=== PATIENT | male | born 1970 | race Hispanic/Latino ===

== ENCOUNTER 2021-03-23 17:59 | Inpatient (IN) | payer OTHER ==
[~2021-03-23] VITALS: Ht 180.3 cm; Wt 48.4 kg
[~2021-03-23 17:59] MED LIST: CARV6.2579 PO; FURO40TA7 PO; HYDR25 PO; Isosorbide Mononitrate PO; LEVO500T89 PO; SPIR25TA PO
[2021-03-23 18:03] VITALS: BP 121/67
[2021-03-23 23:17] VITALS: BP 145/74
[2021-03-23] MEDS ORDERED: LACTATED RINGERS 1000ML 1,000 ML IV ONE ×2 (23:30→23:49)
[2021-03-23 23:44] LABS: BASOPHILS % (AUTO) 0.5 % (0.0-5.0); EOSINOPHILS % (AUTO) 0.7 % (0.0-8.0); HEMATOCRIT 36.4 % (42-54); LYMPHOCYTES % (AUTO) 18.4 % (21.0-51.0); MEAN CORPUSCULAR HEMOGLOBIN 27.3 pg (27.0-33.0); MEAN CORPUSCULAR HGB CONC 31.9 g/dL (32.0-36.0); MEAN CORPUSCULAR VOLUME 85.6 fL (79-99); MONOCYTES % (AUTO) 9.3 % (3.0-13.0); NEUTROPHILS % (AUTO) 70.4 % (40.0-77.0); PLATELET COUNT (AUTO) 496 K/uL (130-400); RED BLOOD CELL COUNT(AUTO) 4.25 MIL/uL (4.50-6.20); RED CELL DISTRIBUTION WIDTH 13.2 % (11.0-15.5); WHITE BLOOD COUNT (AUTO) 12.2 K/uL (4.8-10.8)
[2021-03-24] VITALS (7 sets, daily range): BP systolic 106–132; BP diastolic 62–75
[2021-03-24 00:09] LABS: ALBUMIN 3.3 g/dL (3.5-5.0); BILIRUBIN,TOTAL 0.2 mg/dL (0.2-1.0); CREATININE 0.7 mg/dL (0.5-1.5); MAGNESIUM 1.7 mg/dL (1.80-2.40); POTASSIUM 4.7 mmol/L (3.5-5.1); THYROID STIMULATING HORMONE 1.48 uIU/mL (0.36-3.74); TOTAL PROTEIN, SERUM 8.2 g/dL (6.0-8.3)
[2021-03-24] MEDS ORDERED: IOHEXOL-350 75 ML VIAL IV ONE (01:14)
[2021-03-24] MEDS ORDERED: PIP/TAZ ZOSYN 3.375G 3.375 GM VIAL IVPB SCH (04:30)
[2021-03-24] MEDS ORDERED: ONDANSETRON 4MG INJ IV PRN (04:30)
[2021-03-24] MEDS ORDERED: NITROGLYCERIN 0.4 MG SL TAB SL PRN (04:30)
[2021-03-24] MEDS ORDERED: 0.9%NACL 50ML IV SCH (04:30)
[2021-03-24] MEDS: ZOSYN 3.375GM+NS 50ML 50 ML IV SCH ×3 (04:58→20:08)
[2021-03-24] MEDS: 0.9%NACL 1000ML 1,000 ML IV SCH ×2 (04:58→16:33)
[2021-03-24] MEDS ORDERED: MAGNESIUM 2GM PREMIX 50ML 50 ML IV PRN (07:30)
[2021-03-24] MEDS: FAMOTIDINE 20MG VIAL IV SCH ×2 (08:48→20:08)
[2021-03-24] MEDS: ENOXAPARIN SODIUM 40 MG/0.4 ML SYRINGE SQ SCH (08:49)
[2021-03-24] MEDS: MORPHINE 2 MG SYG IV PRN (14:51)
[2021-03-24] MEDS: MAGNESIUM 2GM PREMIX 50ML 50 ML IV SCH (18:38)
[2021-03-25 03:34] VITALS: BP 125/73
[2021-03-25] MEDS: 0.9%NACL 1000ML 1,000 ML IV SCH ×2 (05:11→15:57)
[2021-03-25] MEDS: ZOSYN 3.375GM+NS 50ML 50 ML IV SCH ×3 (05:11→22:01)
[2021-03-25 06:27] LABS: HEMATOCRIT 33.2 % (42-54); MEAN CORPUSCULAR HEMOGLOBIN 27.3 pg (27.0-33.0); MEAN CORPUSCULAR HGB CONC 32.5 g/dL (32.0-36.0); MEAN CORPUSCULAR VOLUME 84.1 fL (79-99); RED BLOOD CELL COUNT(AUTO) 3.95 MIL/uL (4.50-6.20); RED CELL DISTRIBUTION WIDTH 13.1 % (11.0-15.5); WHITE BLOOD COUNT (AUTO) 9.8 K/uL (4.8-10.8)
[2021-03-25 06:44] LABS: CREATININE 0.8 mg/dL (0.5-1.5); POTASSIUM 4.4 mmol/L (3.5-5.1)
[2021-03-25 07:30] VITALS: BP 130/73
[2021-03-25] MEDS: ENOXAPARIN SODIUM 40 MG/0.4 ML SYRINGE SQ SCH (09:00)
[2021-03-25] MEDS: FAMOTIDINE 20MG VIAL IV SCH ×2 (10:00→22:01)
[2021-03-25] MEDS: MORPHINE 2 MG SYG IV PRN ×3 (10:01→22:01)
[2021-03-25 11:00] VITALS: BP 119/73
[2021-03-25 16:00] VITALS: BP 134/70
[2021-03-25 20:00] VITALS: BP 116/63
[2021-03-26] VITALS: BP 149/81
[2021-03-26 04:00] VITALS: BP 131/79
[2021-03-26] MEDS: ZOSYN 3.375GM+NS 50ML 50 ML IV SCH ×3 (04:41→19:54)
[2021-03-26] MEDS: 0.9%NACL 1000ML 1,000 ML IV SCH (04:42)
[2021-03-26 06:21] LABS: INR 1.08 (0.85-1.15); PROTHROMBIN TIME 11.7 SEC (9.6-11.6)
[2021-03-26 06:23] LABS: PARTIAL THROMBOPLASTIN TIME 23.1 SEC (26.3-35.5)
[2021-03-26 07:30] VITALS: BP 125/64
[2021-03-26] MEDS: ENOXAPARIN SODIUM 40 MG/0.4 ML SYRINGE SQ SCH (08:00)
[2021-03-26] MEDS: MORPHINE 2 MG SYG IV PRN ×3 (08:06→19:54)
[2021-03-26] MEDS: FAMOTIDINE 20MG VIAL IV SCH ×2 (08:06→19:54)
[2021-03-26 11:00] VITALS: BP 120/72
[2021-03-26 16:00] VITALS: BP 114/61
[2021-03-26 20:00] VITALS: BP 123/61
[2021-03-27] VITALS (7 sets, daily range): BP systolic 111–138; BP diastolic 61–82
[2021-03-27] MEDS: MORPHINE 2 MG SYG IV PRN ×5 (02:44→23:01)
[2021-03-27] MEDS: 0.9%NACL 1000ML 1,000 ML IV SCH ×2 (02:46→18:25)
[2021-03-27] MEDS: ZOSYN 3.375GM+NS 50ML 50 ML IV SCH ×3 (05:15→21:15)
[2021-03-27] MEDS: FAMOTIDINE 20MG VIAL IV SCH ×2 (08:53→21:15)
[2021-03-27] MEDS: ENOXAPARIN SODIUM 40 MG/0.4 ML SYRINGE SQ SCH (08:53)
[2021-03-27 09:56] LABS: BASOPHILS % (AUTO) 1.1 % (0.0-5.0); EOSINOPHILS % (AUTO) 4.4 % (0.0-8.0); HEMATOCRIT 30.1 % (42-54); LYMPHOCYTES % (AUTO) 17.4 % (21.0-51.0); MEAN CORPUSCULAR HEMOGLOBIN 27.9 pg (27.0-33.0); MEAN CORPUSCULAR HGB CONC 33.2 g/dL (32.0-36.0); MEAN CORPUSCULAR VOLUME 83.8 fL (79-99); NEUTROPHILS % (AUTO) 62.6 % (40.0-77.0); PLATELET COUNT (AUTO) 467 K/uL (130-400); RED BLOOD CELL COUNT(AUTO) 3.59 MIL/uL (4.50-6.20); RED CELL DISTRIBUTION WIDTH 13.1 % (11.0-15.5); WHITE BLOOD COUNT (AUTO) 8.4 K/uL (4.8-10.8)
[2021-03-27 10:15] LABS: ALBUMIN 2.5 g/dL (3.5-5.0); BILIRUBIN,TOTAL 0.3 mg/dL (0.2-1.0); CREATININE 0.7 mg/dL (0.5-1.5); MAGNESIUM 1.5 mg/dL (1.80-2.40); POTASSIUM 3.8 mmol/L (3.5-5.1); TOTAL PROTEIN, SERUM 6.7 g/dL (6.0-8.3)
[2021-03-28 03:52] VITALS: BP 137/63
[2021-03-28] MEDS: ZOSYN 3.375GM+NS 50ML 50 ML IV SCH ×3 (04:17→19:40)
[2021-03-28] MEDS: MORPHINE 2 MG SYG IV PRN ×3 (04:18→19:41)
[2021-03-28 06:10] LABS: CREATININE 0.8 mg/dL (0.5-1.5); POTASSIUM 4.1 mmol/L (3.5-5.1)
[2021-03-28] MEDS: 0.9%NACL 1000ML 1,000 ML IV SCH ×2 (08:00→17:34)
[2021-03-28 08:10] VITALS: BP 131/70
[2021-03-28] MEDS: ENOXAPARIN SODIUM 40 MG/0.4 ML SYRINGE SQ SCH (08:23)
[2021-03-28] MEDS: FAMOTIDINE 20MG VIAL IV SCH ×2 (08:23→19:40)
[2021-03-28 11:28] VITALS: BP 112/69
[2021-03-28 16:00] VITALS: BP 116/65
[2021-03-29 00:15] VITALS: BP 107/53
[2021-03-29] MEDS: MORPHINE 2 MG SYG IV PRN ×2 (00:16→05:15)
[2021-03-29 03:48] VITALS: BP 147/69
[2021-03-29] MEDS: ZOSYN 3.375GM+NS 50ML 50 ML IV SCH ×3 (05:07→20:54)
[2021-03-29] MEDS: 0.9%NACL 1000ML 1,000 ML IV SCH ×2 (08:00→17:10)
[2021-03-29 08:23] VITALS: BP 118/72
[2021-03-29] MEDS: FAMOTIDINE 20MG VIAL IV SCH ×2 (08:30→20:56)
[2021-03-29] MEDS: ENOXAPARIN SODIUM 40 MG/0.4 ML SYRINGE SQ SCH (08:31)
[2021-03-29] MEDS: MAGNESIUM 2GM PREMIX 50ML 50 ML IV SCH (10:27)
[2021-03-29] MEDS: MORPHINE 2 MG SYG IVP PRN ×3 (10:28→22:52)
[2021-03-29 12:19] VITALS: BP 129/70
[2021-03-29 16:55] VITALS: BP 137/86
[2021-03-29 20:00] VITALS: BP 114/69
[2021-03-30] VITALS (27 sets, daily range): BP systolic 111–149; BP diastolic 63–92
[2021-03-30] MEDS: ZOSYN 3.375GM+NS 50ML 50 ML IV SCH ×3 (03:27→19:56)
[2021-03-30] MEDS: MORPHINE 2 MG SYG IVP PRN ×4 (03:58→19:55)
[2021-03-30] MEDS: FAMOTIDINE 20MG VIAL IV SCH ×2 (08:47→19:55)
[2021-03-30] MEDS: ENOXAPARIN SODIUM 40 MG/0.4 ML SYRINGE SQ SCH (09:00)
[2021-03-30] MEDS ORDERED: LACTATED RINGERS 1000ML 1,000 ML IV ONE (12:12)
[2021-03-30] MEDS ORDERED: MIDAZOLAM HCL 1 MG/ML 2ML VIAL ONE (13:09)
[2021-03-30] MEDS ORDERED: DEXAMETHASONE SOD PHOSPHATE 10MG/ML 1ML VIAL ONE (13:09)
[2021-03-30] MEDS ORDERED: ONDANSETRON 4MG INJ ONE (13:09)
[2021-03-30] MEDS ORDERED: LIDOCAINE PF 100MG/5ML (2%) SYRINGE 5ML ONE (13:09)
[2021-03-30] MEDS ORDERED: NEOSTIGMINE 5MG/5ML SYR IV ONE (13:09)
[2021-03-30] MEDS ORDERED: PROPOFOL 10 MG/ML 20ML VIAL IV ONE (13:09)
[2021-03-30] MEDS ORDERED: GLYCOPYRROLATE 1 MG/5 ML SYRINGE ONE (13:09)
[2021-03-30] MEDS ORDERED: SUCCINYLCHOLINE 200MG/10ML SYR ONE (13:09)
[2021-03-30] MEDS ORDERED: ROCURONIUM 10MG/1ML SYR 10 MG/ML ML ONE (13:10)
[2021-03-30] MEDS ORDERED: FENTANYL CITRATE PF 50 MCG/1 ML 2ML VIAL ONE (13:10)
[2021-03-30] MEDS ORDERED: BUPIVACAINE/PF 0.5% 30ML VIAL ONE (13:46)
[2021-03-30] MEDS ORDERED: KETOROLAC 15MG/ML VIAL (15MG/ML) IV PRN (19:30)
[2021-03-31] VITALS: BP 126/76
[2021-03-31 04:00] VITALS: BP 139/73
[2021-03-31] MEDS: ZOSYN 3.375GM+NS 50ML 50 ML IV SCH ×3 (04:32→21:28)
[2021-03-31 05:53] LABS: BASOPHILS % (AUTO) 0.6 % (0.0-5.0); EOSINOPHILS % (AUTO) 0.3 % (0.0-8.0); HEMATOCRIT 33.4 % (42-54); MEAN CORPUSCULAR HEMOGLOBIN 27.7 pg (27.0-33.0); MEAN CORPUSCULAR HGB CONC 32.9 g/dL (32.0-36.0); MEAN CORPUSCULAR VOLUME 84.1 fL (79-99); MONOCYTES % (AUTO) 10.8 % (3.0-13.0); NEUTROPHILS % (AUTO) 68.1 % (40.0-77.0); PLATELET COUNT (AUTO) 486 K/uL (130-400); RED BLOOD CELL COUNT(AUTO) 3.97 MIL/uL (4.50-6.20); RED CELL DISTRIBUTION WIDTH 13.2 % (11.0-15.5); WHITE BLOOD COUNT (AUTO) 11.6 K/uL (4.8-10.8)
[2021-03-31 06:22] LABS: ALBUMIN 2.6 g/dL (3.5-5.0); BILIRUBIN,TOTAL 0.3 mg/dL (0.2-1.0); CREATININE 0.9 mg/dL (0.5-1.5); MAGNESIUM 1.4 mg/dL (1.80-2.40); POTASSIUM 4.3 mmol/L (3.5-5.1); TOTAL PROTEIN, SERUM 6.9 g/dL (6.0-8.3)
[2021-03-31 08:00] VITALS: BP 145/86
[2021-03-31] MEDS: FAMOTIDINE 20MG VIAL IV SCH ×2 (08:38→21:28)
[2021-03-31] MEDS: ENOXAPARIN SODIUM 40 MG/0.4 ML SYRINGE SQ SCH (08:39)
[2021-03-31] MEDS ORDERED: LACTULOSE 20 GM/30 ML UDCUP ONE (10:56)
[2021-03-31] MEDS: LACTULOSE 20 GM/30 ML UDCUP PO SCH ×2 (11:00→11:23)
[2021-03-31 13:54] VITALS: BP 140/83
[2021-03-31 16:00] VITALS: BP 132/84
[2021-03-31] MEDS: 0.9%NACL 1000ML 1,000 ML IV SCH (17:23)
[2021-03-31 20:00] VITALS: BP 146/86
[2021-04-01] VITALS: BP 117/71
[2021-04-01 04:00] VITALS: BP 129/84
[2021-04-01] MEDS: ZOSYN 3.375GM+NS 50ML 50 ML IV SCH ×2 (05:17→12:48)
[2021-04-01] MEDS: 0.9%NACL 1000ML 1,000 ML IV SCH (08:00)
[2021-04-01 08:04] VITALS: BP 137/85
[2021-04-01] MEDS: FAMOTIDINE 20MG VIAL IV SCH (09:03)
[2021-04-01] MEDS: ENOXAPARIN SODIUM 40 MG/0.4 ML SYRINGE SQ SCH (09:04)
[2021-04-01 10:46] VITALS: BP 136/79
[2021-04-01] MEDS ORDERED: LACTULOSE 20 GM/30 ML UDCUP PO ONE (11:30)
[2021-04-01 16:29] VITALS: BP 134/85
== END 2021-04-01 19:03 | disposition home or self-care (01) | DRG 326 ==
LOC: EDH 17:59 → EDHIP 03-24 04:16 → 3AH 03-24 09:24
PROVIDERS: ADMIT Hospitalist; ATTEND Hospitalist
PROC: 0HB4XZX Excision of Neck Skin, External Approach, Diagnostic (ICD-10-PCS; principal; 2021-03-26)
PROC: 0DH60UZ Insertion of Feeding Device into Stomach, Open Approach (ICD-10-PCS; 2021-03-30)
DX: R13.12 Dysphagia, oropharyngeal phase (principal); E43 Unspecified severe protein-calorie malnutrition; L03.221 Cellulitis of neck; R64 Cachexia; E87.1 Hypo-osmolality and hyponatremia; I50.22 Chronic systolic (congestive) heart failure; R22.1 Localized swelling, mass and lump, neck; E86.0 Dehydration; J44.9 Chronic obstructive pulmonary disease, unspecified; I10 Essential (primary) hypertension; E83.52 Hypercalcemia; D64.9 Anemia, unspecified; F17.200 Nicotine dependence, unspecified, uncomplicated; I11.0 Hypertensive heart disease with heart failure; R62.7 Adult failure to thrive; Z80.51 Family history of malignant neoplasm of kidney; Z82.49 Family history of ischemic heart disease and other diseases of the circulatory system; Z83.3 Family history of diabetes mellitus; Z20.822 Contact with and (suspected) exposure to COVID-19
CPT/HCPCS: 36415; 38505; 70491; 71045; 74018; 74230; 76942; 80048; 80053; 83735; 84145; 84439; 84443; 84481; 85025; 85027; 85610; 85730; 87040; 87070; 87076; 87077; 87186; 87635; 92526; 92610; 92611; 93005; C9803; G0378; J0330; J1100; J1650; J1885; J2001; J2250; J2405; J2543; J2704; J2710; J3010; J3475; J3490; J7030; J7120; Q9967

== ENCOUNTER 2021-06-14 19:17 | Inpatient (IN) | payer OTHER ==
[~2021-06-14] VITALS: Ht 180.3 cm; Wt 54.6 kg
[2021-06-14 19:50] LABS: BASOPHILS % (AUTO) 0.3 % (0.0-5.0); EOSINOPHILS % (AUTO) 0.4 % (0.0-8.0); HEMATOCRIT 35.5 % (42-54); LYMPHOCYTES % (AUTO) 16.6 % (21.0-51.0); MEAN CORPUSCULAR HEMOGLOBIN 28.5 pg (27.0-33.0); MEAN CORPUSCULAR HGB CONC 32.4 g/dL (32.0-36.0); MEAN CORPUSCULAR VOLUME 88.1 fL (79-99); MONOCYTES % (AUTO) 11.4 % (3.0-13.0); NEUTROPHILS % (AUTO) 66.1 % (40.0-77.0); PLATELET COUNT (AUTO) 647 K/uL (130-400); RED BLOOD CELL COUNT(AUTO) 4.03 MIL/uL (4.50-6.20); RED CELL DISTRIBUTION WIDTH 16.6 % (11.0-15.5); WHITE BLOOD COUNT (AUTO) 20.4 K/uL (4.8-10.8)
[2021-06-14] MEDS ORDERED: LACTATED RINGERS 1000ML 1,000 ML IV ONE (20:00)
[2021-06-14] MEDS ORDERED: CLINDAMYCIN IVPB 600MG/50ML 50 ML IV SCH (20:00)
[2021-06-14 20:02] LABS: CREATININE 0.5 mg/dL (0.5-1.5); POTASSIUM 4.1 mmol/L (3.5-5.1)
[2021-06-14] MEDS ORDERED: CEFEPIME HCL 2 GM VIAL IVP STA (20:03)
[2021-06-14 20:15] LABS: ALBUMIN 3.1 g/dL (3.5-5.0); BILIRUBIN,TOTAL 0.4 mg/dL (0.2-1.0); TOTAL PROTEIN, SERUM 7.2 g/dL (6.0-8.3)
[2021-06-14] MEDS ORDERED: IOHEXOL 350 MG/ML 100ML INFUS..BTL IV ONE (20:15)
[2021-06-14 20:16] LABS: CRP QUANTITATIVE 99.2 mg/L (0.00-9.0); MAGNESIUM 1.8 mg/dL (1.80-2.40)
[2021-06-14 20:38] LABS: APPEARANCE,URINE Clear (CLEAR); BILIRUBIN,URINE Negative (NEGATIVE); COLOR,URINE Yellow (YELLOW); GLUCOSE, URINE (UA) Negative (NEGATIVE); KETONES,URINE Negative (NEGATIVE); LEUKOCYTE ESTERASE ,URINE Trace (NEGATIVE); NITRATE,URINE Negative (NEGATIVE); OCCULT BLOOD,URINE Negative (NEGATIVE); PH,URINE 8.5 (5.0-8.0); PROTEIN,URINE Negative (NEGATIVE)
[2021-06-14 21:07] LABS: BACTERIA,URINE Rare /HPF (None Seen); RBC,URINE 0-1 /HPF (0-1); SQUAMOUS EPITHELIAL CELL,UR 0-2 /HPF (0-2); WBC,URINE 0-1 /HPF (0-1)
[2021-06-14] MEDS ORDERED: ONDANSETRON 4MG INJ IVP ONE (23:00)
[2021-06-14] MEDS ORDERED: MORPHINE 5 MG/ML VIAL (5MG OR GREATER DOSE) IV ONE (23:00)
[2021-06-14] MEDS ORDERED: ACETAMINOPHEN 650 MG/20.3 ML UDCUP PEG PRN (23:30)
[2021-06-14] MEDS ORDERED: ONDANSETRON 4MG INJ IV PRN (23:30)
[2021-06-14] MEDS ORDERED: NITROGLYCERIN 0.4 MG SL TAB SL PRN (23:30)
[2021-06-14] MEDS ORDERED: IPRATROPIUM/ALBUTEROL SULFATE 3 ML SOLUTION IH PRN (23:30)
[2021-06-15] MEDS: 0.9%NACL 1000ML 1,000 ML IV SCH ×2 (00:17→12:17)
[2021-06-15 02:33] LABS: INR 0.99 (0.85-1.15); PROTHROMBIN TIME 10.8 SEC (9.6-11.6)
[2021-06-15 02:34] LABS: PARTIAL THROMBOPLASTIN TIME 23.3 SEC (26.3-35.5)
[2021-06-15 02:49] VITALS: BP 102/61
[2021-06-15] MEDS ORDERED: ACET-66 PO (03:37)
[2021-06-15] MEDS ORDERED: DEXA4 PO (03:37)
[2021-06-15] MEDS ORDERED: SENN8.6T32 PO (03:37)
[2021-06-15] MEDS ORDERED: IPRA3AMP24 IH (03:37)
[2021-06-15] MEDS ORDERED: PANCRELIPASE GT (03:37)
[2021-06-15] MEDS ORDERED: APIX5TAB PO (03:37)
[2021-06-15] MEDS: MORPHINE 2 MG SYG IV PRN ×3 (04:06→22:49)
[2021-06-15 04:17] LABS: BASOPHILS % (AUTO) 0.3 % (0.0-5.0); EOSINOPHILS % (AUTO) 0.3 % (0.0-8.0); HEMATOCRIT 32.5 % (42-54); MEAN CORPUSCULAR HGB CONC 33.2 g/dL (32.0-36.0); MEAN CORPUSCULAR VOLUME 87.1 fL (79-99); NEUTROPHILS % (AUTO) 72.4 % (40.0-77.0); PLATELET COUNT (AUTO) 517 K/uL (130-400); RED BLOOD CELL COUNT(AUTO) 3.73 MIL/uL (4.50-6.20); RED CELL DISTRIBUTION WIDTH 16.3 % (11.0-15.5); WHITE BLOOD COUNT (AUTO) 24.5 K/uL (4.8-10.8)
[2021-06-15 04:41] LABS: ALBUMIN 2.7 g/dL (3.5-5.0); BILIRUBIN,TOTAL 0.7 mg/dL (0.2-1.0); CREATININE 0.5 mg/dL (0.5-1.5); MAGNESIUM 1.8 mg/dL (1.80-2.40); POTASSIUM 4.2 mmol/L (3.5-5.1); TOTAL PROTEIN, SERUM 6.1 g/dL (6.0-8.3)
[2021-06-15] MEDS: CLINDAMYCIN IVPB 600MG/50ML 50 ML IV SCH ×2 (05:25→12:17)
[2021-06-15] MEDS: CEFEPIME HCL 1 GM VIAL IVP SCH ×2 (05:25→12:17)
[2021-06-15 07:35] VITALS: BP 102/59
[2021-06-15] MEDS: FAMOTIDINE 20MG VIAL IV SCH ×2 (08:56→20:19)
[2021-06-15] MEDS ORDERED: ENOXAPARIN SODIUM 30 MG/0.3 ML SQ SCH (09:00)
[2021-06-15 11:25] VITALS: BP 114/51
[2021-06-15] MEDS ORDERED: VANCOMYCIN PROTOCOL PER PHARMACY IV SCH (14:00)
[2021-06-15] MEDS ORDERED: COMPOUND IV REFRIGERATED 1 EACH IVSOLN MISC PRN (14:30)
[2021-06-15] MEDS: FLUCONAZOLE 200 MG/NS 100 ML 100 ML IV SCH (14:41)
[2021-06-15] MEDS: ZOSYN 3.375GM +NS 50ML IV SCH ×2 (14:41→22:45)
[2021-06-15] MEDS: 0.9%NACL 50ML 50 ML IV SCH ×2 (14:41→22:45)
[2021-06-15 15:40] VITALS: BP 95/56
[2021-06-15] MEDS ORDERED: SENNOSIDES 8.6 MG TABLET PO PRN (17:00)
[2021-06-15] MEDS ORDERED: VANCOMYCIN 1.25GM/NS 250ML IVPB ONE ×2 (18:00)
[2021-06-15] MEDS: DEXAMETHASONE 4 MG TAB PO SCH (20:19)
[2021-06-15] MEDS: APIXABAN 5 MG TABLET PO SCH (20:19)
[2021-06-15 20:27] VITALS: BP 108/55
[2021-06-15 23:44] VITALS: BP 99/49
[2021-06-16 03:36] VITALS: BP 102/52
[2021-06-16] MEDS: VANCOMYCIN 750MG VIAL IVPB SCH ×2 (04:54→18:30)
[2021-06-16] MEDS: MORPHINE 2 MG SYG IV PRN ×2 (04:54→20:41)
[2021-06-16] MEDS: ZOSYN 3.375GM +NS 50ML IV SCH ×3 (04:55→20:41)
[2021-06-16] MEDS: 0.9%NACL 50ML 50 ML IV SCH ×3 (06:00→20:41)
[2021-06-16] MEDS: 0.9% NACL 250ML 250 ML IV SCH ×2 (06:00→18:30)
[2021-06-16 07:00] VITALS: BP 96/49
[2021-06-16] MEDS: DEXAMETHASONE 4 MG TAB PO SCH ×2 (10:06→20:40)
[2021-06-16] MEDS: APIXABAN 5 MG TABLET PO SCH ×2 (10:07→20:40)
[2021-06-16] MEDS: FAMOTIDINE 20MG VIAL IV SCH ×2 (10:07→20:40)
[2021-06-16 11:00] VITALS: BP 97/52
[2021-06-16] MEDS: FLUCONAZOLE 200 MG/NS 100 ML 100 ML IV SCH (15:49)
[2021-06-16] MEDS: 0.9%NACL 1000ML 1,000 ML IV SCH (15:59)
[2021-06-16 16:00] VITALS: BP 97/55
[2021-06-16 20:00] VITALS: BP 93/52
[2021-06-17] VITALS: BP 97/54
[2021-06-17] MEDS: MORPHINE 2 MG SYG IV PRN ×3 (01:44→20:37)
[2021-06-17 04:00] VITALS: BP 108/60
[2021-06-17] MEDS: ZOSYN 3.375GM +NS 50ML IV SCH ×3 (05:40→22:40)
[2021-06-17] MEDS: 0.9%NACL 50ML 50 ML IV SCH ×3 (05:40→22:40)
[2021-06-17] MEDS: 0.9% NACL 250ML 250 ML IV SCH ×2 (05:41→18:00)
[2021-06-17] MEDS: VANCOMYCIN 750MG VIAL IVPB SCH (05:41)
[2021-06-17 08:00] VITALS: BP 102/56
[2021-06-17] MEDS: DEXAMETHASONE 4 MG TAB PO SCH ×2 (10:00→22:39)
[2021-06-17] MEDS: FAMOTIDINE 20MG VIAL IV SCH ×2 (10:00→22:39)
[2021-06-17] MEDS: APIXABAN 5 MG TABLET PO SCH ×2 (10:00→22:40)
[2021-06-17] MEDS: 0.9%NACL 1000ML 1,000 ML IV SCH (11:53)
[2021-06-17 12:00] VITALS: BP 98/58
[2021-06-17] MEDS: FLUCONAZOLE 200 MG/NS 100 ML 100 ML IV SCH (15:05)
[2021-06-17 16:00] VITALS: BP 102/56
[2021-06-17] MEDS: VANCOMYCIN 1G/250ML KIT 250 ML IV SCH (18:00)
[2021-06-17 18:17] LABS: BASOPHILS % (AUTO) 0.1 % (0.0-5.0); HEMATOCRIT 28.2 % (42-54); LYMPHOCYTES % (AUTO) 7.7 % (21.0-51.0); MEAN CORPUSCULAR HEMOGLOBIN 28.7 pg (27.0-33.0); MEAN CORPUSCULAR HGB CONC 32.3 g/dL (32.0-36.0); MONOCYTES % (AUTO) 4.6 % (3.0-13.0); PLATELET COUNT (AUTO) 415 K/uL (130-400); RED BLOOD CELL COUNT(AUTO) 3.17 MIL/uL (4.50-6.20); RED CELL DISTRIBUTION WIDTH 15.9 % (11.0-15.5); WHITE BLOOD COUNT (AUTO) 10.7 K/uL (4.8-10.8)
[2021-06-17 18:21] LABS: RETICULOCYTE % (AUTO) 1.8 % (0.42-2.23)
[2021-06-17 18:29] LABS: CREATININE 0.5 mg/dL (0.5-1.5)
[2021-06-17] MEDS: IPRATROPIUM/ALBUTEROL SULFATE 3 ML SOLUTION IH SCH (18:29)
[2021-06-17] MEDS: BUDESONIDE 0.5 MG/2 ML INH IH SCH (18:29)
[2021-06-17 18:33] LABS: ALBUMIN 2.3 g/dL (3.5-5.0); BILIRUBIN,TOTAL 0.2 mg/dL (0.2-1.0); MAGNESIUM 2.2 mg/dL (1.80-2.40); PHOSPHORUS 1.6 mg/dL (2.5-4.9); TOTAL PROTEIN, SERUM 6.1 g/dL (6.0-8.3)
[2021-06-17 18:47] LABS: % IRON SATURATION 27.4 % (30-44)
[2021-06-17 20:00] VITALS: BP 167/69
[2021-06-17] MEDS: ACETAMINOPHEN 650 MG/20.3 ML UDCUP PEG PRN (22:40)
[2021-06-18] VITALS: BP 98/52
[2021-06-18] MEDS: IPRATROPIUM/ALBUTEROL SULFATE 3 ML SOLUTION IH SCH ×5 (00:44→23:17)
[2021-06-18] MEDS: MORPHINE 2 MG SYG IV PRN ×4 (02:45→20:59)
[2021-06-18 04:00] VITALS: BP 101/54
[2021-06-18 04:50] LABS: HEMATOCRIT 28.7 % (42-54); MEAN CORPUSCULAR HEMOGLOBIN 28.9 pg (27.0-33.0); MEAN CORPUSCULAR HGB CONC 32.1 g/dL (32.0-36.0); MEAN CORPUSCULAR VOLUME 90.3 fL (79-99); RED BLOOD CELL COUNT(AUTO) 3.18 MIL/uL (4.50-6.20); WHITE BLOOD COUNT (AUTO) 10.1 K/uL (4.8-10.8)
[2021-06-18 05:08] LABS: CREATININE 0.5 mg/dL (0.5-1.5); MAGNESIUM 2.4 mg/dL (1.80-2.40); POTASSIUM 4.7 mmol/L (3.5-5.1)
[2021-06-18] MEDS: 0.9%NACL 50ML 50 ML IV SCH ×3 (06:21→21:55)
[2021-06-18] MEDS: 0.9%NACL 1000ML 1,000 ML IV SCH (06:22)
[2021-06-18] MEDS: ZOSYN 3.375GM +NS 50ML IV SCH (06:22)
[2021-06-18] MEDS: BUDESONIDE 0.5 MG/2 ML INH IH SCH ×2 (07:00→18:38)
[2021-06-18] MEDS ORDERED: IRON SUCROSE COMPLEX 500 MG in 0.9%NACL 50ML 50 ML IV SCH (10:00)
[2021-06-18] MEDS: FAMOTIDINE 20MG VIAL IV SCH ×2 (10:23→20:59)
[2021-06-18] MEDS: PREDNISONE 20 MG TABLET PO SCH (10:23)
[2021-06-18] MEDS: APIXABAN 5 MG TABLET PO SCH ×2 (10:23→20:59)
[2021-06-18] MEDS: VANCOMYCIN 1G/250ML KIT 250 ML IV SCH (11:04)
[2021-06-18] MEDS: 0.9% NACL 250ML 250 ML IV SCH ×2 (11:04→18:00)
[2021-06-18 11:35] VITALS: BP 118/69
[2021-06-18] MEDS: FLUCONAZOLE 200 MG/NS 100 ML 100 ML IV SCH (13:56)
[2021-06-18] MEDS: CEFUROXIME AXETIL 250 MG TABLET PO SCH (14:41)
[2021-06-18 16:01] VITALS: BP 137/81
[2021-06-18 20:00] VITALS: BP 123/69
[2021-06-19] VITALS: BP 110/60
[2021-06-19] MEDS: CEFUROXIME AXETIL 250 MG TABLET PO SCH (01:05)
[2021-06-19] MEDS: MORPHINE 2 MG SYG IV PRN ×3 (01:05→08:39)
[2021-06-19] MEDS: 0.9%NACL 1000ML 1,000 ML IV SCH (02:08)
[2021-06-19] MEDS: 0.9% NACL 250ML 250 ML IV SCH ×2 (03:45→18:00)
[2021-06-19] MEDS: 0.9%NACL 50ML 50 ML IV SCH ×2 (03:46→14:00)
[2021-06-19 04:00] VITALS: BP 131/68
[2021-06-19] MEDS: ACETAMINOPHEN 650 MG/20.3 ML UDCUP PEG PRN (04:01)
[2021-06-19] MEDS: BUDESONIDE 0.5 MG/2 ML INH IH SCH (07:02)
[2021-06-19] MEDS: IPRATROPIUM/ALBUTEROL SULFATE 3 ML SOLUTION IH SCH ×2 (07:02→11:28)
[2021-06-19 07:56] VITALS: BP 106/56
[2021-06-19] MEDS: APIXABAN 5 MG TABLET PO SCH (08:38)
[2021-06-19] MEDS: FAMOTIDINE 20MG VIAL IV SCH (08:38)
[2021-06-19] MEDS: PREDNISONE 20 MG TABLET PO SCH (08:39)
[2021-06-19] MEDS ORDERED: SULF1TAB42 PO (09:27)
[2021-06-19] MEDS ORDERED: PRED20B PO (09:27)
[2021-06-19] MEDS ORDERED: SULFAMETHOX-TMP DS 800/160 TAB PO SCH ×3 (09:30→21:00)
[2021-06-19 11:44] VITALS: BP 103/63
== END 2021-06-19 18:49 | disposition home or self-care (01) | DRG 871 ==
LOC: EDH 19:17 → EEVIPCON 19:18 → EDHIP 19:18 → 4CH 06-15 02:48
PROVIDERS: ADMIT Internal Medicine; ATTEND Internal Medicine
DX: A41.01 Sepsis due to Methicillin susceptible Staphylococcus aureus (principal); J15.211 Pneumonia due to Methicillin susceptible Staphylococcus aureus; D84.9 Immunodeficiency, unspecified; E87.1 Hypo-osmolality and hyponatremia; I50.22 Chronic systolic (congestive) heart failure; J44.0 Chronic obstructive pulmonary disease with (acute) lower respiratory infection; R64 Cachexia; Z68.1 Body mass index [BMI] 19.9 or less, adult; J44.1 Chronic obstructive pulmonary disease with (acute) exacerbation; J98.11 Atelectasis; J96.10 Chronic respiratory failure, unspecified whether with hypoxia or hypercapnia; L03.311 Cellulitis of abdominal wall; E44.0 Moderate protein-calorie malnutrition; I11.0 Hypertensive heart disease with heart failure; D50.9 Iron deficiency anemia, unspecified; D75.839 Thrombocytosis, unspecified; J98.4 Other disorders of lung; C02.9 Malignant neoplasm of tongue, unspecified; K80.50 Calculus of bile duct without cholangitis or cholecystitis without obstruction; R13.12 Dysphagia, oropharyngeal phase; R62.7 Adult failure to thrive; Z20.822 Contact with and (suspected) exposure to COVID-19; R53.81 Other malaise; Z93.1 Gastrostomy status; Z93.0 Tracheostomy status; Z87.891 Personal history of nicotine dependence; Z85.89 Personal history of malignant neoplasm of other organs and systems; Z85.819 Personal history of malignant neoplasm of unspecified site of lip, oral cavity, and pharynx; Z83.3 Family history of diabetes mellitus; Z80.51 Family history of malignant neoplasm of kidney; Z82.49 Family history of ischemic heart disease and other diseases of the circulatory system
CPT/HCPCS: 36415; 70491; 71045; 71046; 74176; 80048; 80053; 80202; 81001; 82550; 82607; 82728; 82746; 83540; 83550; 83605; 83735; 84100; 84145; 84484; 85025; 85027; 85045; 85610; 85651; 85730; 86140; 87040; 87070; 87071; 87076; 87077; 87088; 87186; 87205; 87635; 87641; 92610; 93005; 94640; 94664; G0378; J0692; J1450; J1650; J1756; J2270; J2405; J2543; J3370; J3490; J7030; J7050; J8540; Q9967

== ENCOUNTER 2021-07-31 09:30 | Inpatient (IN) | payer MEDICAID ==
[~2021-07-31] VITALS: Ht 180.3 cm; Wt 63.0 kg
[~2021-07-31 09:30] MED LIST changes: +ACET-66 PO; +APIX5TAB PO; -CARV6.2579 PO; +DEXA4 PO; -FURO40TA7 PO; -HYDR25 PO; +IPRA3AMP24 IH; -Isosorbide Mononitrate PO; -LEVO500T89 PO; +PANCRELIPASE GT; +PRED20B PO; +SENN8.6T32 PO; -SPIR25TA PO; +SULF1TAB42 PO
[2021-07-31] MEDS ORDERED: IPRATROPIUM/ALBUTEROL SULFATE 3 ML SOLUTION IH ONE ×2 (10:00→15:00)
[2021-07-31] MEDS ORDERED: 0.9%NACL 1000ML 1,000 ML IV ONE (10:00)
[2021-07-31 10:24] LABS: BASOPHILS % (AUTO) 0.5 % (0.0-5.0); EOSINOPHILS % (AUTO) 0.3 % (0.0-8.0); HEMATOCRIT 29.1 % (42-54); LYMPHOCYTES % (AUTO) 15.6 % (21.0-51.0); MEAN CORPUSCULAR HEMOGLOBIN 28.7 pg (27.0-33.0); MEAN CORPUSCULAR VOLUME 89.8 fL (79-99); MONOCYTES % (AUTO) 12.6 % (3.0-13.0); NEUTROPHILS % (AUTO) 70.5 % (40.0-77.0); PLATELET COUNT (AUTO) 310 K/uL (130-400); RED BLOOD CELL COUNT(AUTO) 3.24 MIL/uL (4.50-6.20); RED CELL DISTRIBUTION WIDTH 15.6 % (11.0-15.5); WHITE BLOOD COUNT (AUTO) 10.3 K/uL (4.8-10.8)
[2021-07-31 10:42] LABS: ALBUMIN 2.7 g/dL (3.5-5.0); BILIRUBIN,TOTAL 0.3 mg/dL (0.2-1.0); CREATININE 0.7 mg/dL (0.5-1.5); TOTAL PROTEIN, SERUM 6.7 g/dL (6.0-8.3)
[2021-07-31] MEDS ORDERED: AMYL1CAP62 PO (10:46)
[2021-07-31] MEDS ORDERED: VANCOMYCIN 1G VIAL IVPB ONE (11:00)
[2021-07-31] MEDS: CEFEPIME HCL 2 GM VIAL IVP SCH ×2 (11:27→22:46)
[2021-07-31] MEDS ORDERED: VANCOMYCIN 1.25GM/NS 250ML IVPB SCH ×2 (11:30)
[2021-07-31] MEDS ORDERED: ONDANSETRON 4MG INJ IV PRN (12:30)
[2021-07-31] MEDS ORDERED: VANCOMYCIN PROTOCOL PER PHARMACY IV SCH (12:30)
[2021-07-31] MEDS ORDERED: ACETAMINOPHEN 325 MG TAB PO PRN (12:30)
[2021-07-31 12:44] LABS: RETICULOCYTE % (AUTO) 3.06 % (0.42-2.23)
[2021-07-31 13:06] LABS: % IRON SATURATION 8.2 % (30-44)
[2021-07-31] MEDS: 0.9%NACL 1000ML 1,000 ML IV SCH ×2 (14:46→22:48)
[2021-07-31] MEDS: ACETYLCYSTEINE 10% 100MG/ML 4ML VIAL IH SCH ×2 (15:34→23:03)
[2021-07-31] MEDS: IPRATROPIUM/ALBUTEROL SULFATE 3 ML SOLUTION IH SCH ×2 (15:34→23:03)
[2021-07-31 17:12] LABS: CREATININE 0.6 mg/dL (0.5-1.5); POTASSIUM 4.4 mmol/L (3.5-5.1)
[2021-07-31] MEDS ORDERED: IPRATROPIUM/ALBUTEROL SULFATE 3 ML SOLUTION IH SCH ×2 (18:00→22:00)
[2021-07-31 20:01] LABS: CREATININE 0.5 mg/dL (0.5-1.5); POTASSIUM 4.3 mmol/L (3.5-5.1)
[2021-07-31] MEDS: BUDESONIDE 0.5 MG/2 ML INH IH SCH (20:12)
[2021-07-31 21:15] VITALS: BP 125/71
[2021-07-31] MEDS ORDERED: 0.9% NACL 250ML 250 ML ONE (22:27)
[2021-07-31] MEDS: VANCOMYCIN 1G/250ML KIT 250 ML IV SCH (22:47)
[2021-07-31] MEDS: FAMOTIDINE 20MG VIAL IV SCH (22:47)
[2021-07-31] MEDS: ACETAMINOPHEN 325 MG TAB PO PRN (23:41)
[2021-08-01] VITALS (7 sets, daily range): BP systolic 96–130; BP diastolic 54–72
[2021-08-01 02:29] LABS: CREATININE 0.6 mg/dL (0.5-1.5); POTASSIUM 4.2 mmol/L (3.5-5.1)
[2021-08-01] MEDS: IPRATROPIUM/ALBUTEROL SULFATE 3 ML SOLUTION IH SCH ×3 (06:25→19:24)
[2021-08-01] MEDS: ACETYLCYSTEINE 10% 100MG/ML 4ML VIAL IH SCH ×3 (06:25→19:24)
[2021-08-01] MEDS: BUDESONIDE 0.5 MG/2 ML INH IH SCH ×2 (06:25→18:59)
[2021-08-01 08:00] LABS: CREATININE 0.6 mg/dL (0.5-1.5); POTASSIUM 4.2 mmol/L (3.5-5.1)
[2021-08-01] MEDS: ENOXAPARIN SODIUM 40 MG/0.4 ML SYRINGE SQ SCH (08:52)
[2021-08-01] MEDS: FAMOTIDINE 20MG VIAL IV SCH ×2 (08:52→20:16)
[2021-08-01] MEDS: VANCOMYCIN 1G/250ML KIT 250 ML IV SCH ×2 (08:53→22:11)
[2021-08-01] MEDS: CEFEPIME HCL 2 GM VIAL IVP SCH ×2 (11:44→22:09)
[2021-08-01 14:11] LABS: CREATININE 0.6 mg/dL (0.5-1.5); POTASSIUM 4.2 mmol/L (3.5-5.1)
[2021-08-01] MEDS: LIPASE/PROTEASE/AMYLASE 5000/17000/24000 PO SCH ×2 (15:00→20:16)
[2021-08-01] MEDS ORDERED: LINEZOLID 600 MG/ISO-OSM 300 ML IV SCH (16:00)
[2021-08-01] MEDS ORDERED: PHARMACY COMMUNICATION MISC SCH (16:30)
[2021-08-01] MEDS: ACETAMINOPHEN 325 MG TAB PO PRN (16:46)
[2021-08-01] MEDS: 0.9%NACL 1000ML 1,000 ML IV SCH (17:27)
[2021-08-01 20:04] LABS: CREATININE 0.7 mg/dL (0.5-1.5); POTASSIUM 3.7 mmol/L (3.5-5.1)
[2021-08-02] MEDS: IPRATROPIUM/ALBUTEROL SULFATE 3 ML SOLUTION IH SCH ×5 (00:04→23:18)
[2021-08-02] MEDS ORDERED: ACETAMINOPHEN 650 MG/20.3 ML UDCUP ONE ×2 (00:04→05:30)
[2021-08-02] MEDS: ACETYLCYSTEINE 10% 100MG/ML 4ML VIAL IH SCH ×5 (00:04→23:18)
[2021-08-02 03:38] VITALS: BP 98/61
[2021-08-02] MEDS ORDERED: ACETAMINOPHEN 650 MG/20.3 ML UDCUP PEG PRN (05:30)
[2021-08-02 06:22] LABS: BASOPHILS % (AUTO) 0.6 % (0.0-5.0); EOSINOPHILS % (AUTO) 2.8 % (0.0-8.0); MEAN CORPUSCULAR HEMOGLOBIN 28.6 pg (27.0-33.0); MEAN CORPUSCULAR HGB CONC 32.7 g/dL (32.0-36.0); MEAN CORPUSCULAR VOLUME 87.5 fL (79-99); MONOCYTES % (AUTO) 15.5 % (3.0-13.0); NEUTROPHILS % (AUTO) 57.6 % (40.0-77.0); PLATELET COUNT (AUTO) 293 K/uL (130-400); RED BLOOD CELL COUNT(AUTO) 2.97 MIL/uL (4.50-6.20); RED CELL DISTRIBUTION WIDTH 15.2 % (11.0-15.5); WHITE BLOOD COUNT (AUTO) 8.3 K/uL (4.8-10.8)
[2021-08-02] MEDS: BUDESONIDE 0.5 MG/2 ML INH IH SCH ×2 (06:30→18:15)
[2021-08-02] MEDS: 0.9%NACL 1000ML 1,000 ML IV SCH (06:34)
[2021-08-02 06:37] LABS: CREATININE 0.6 mg/dL (0.5-1.5); CRP QUANTITATIVE 103.4 mg/L (0.00-9.0)
[2021-08-02 08:03] VITALS: BP 116/63
[2021-08-02] MEDS ORDERED: VANCOMYCIN PROTOCOL PER PHARMACY IV SCH (08:30)
[2021-08-02] MEDS: VANCOMYCIN 1G/250ML KIT 250 ML IV SCH (09:23)
[2021-08-02] MEDS: ACETAMINOPHEN 325 MG TAB PO PRN ×2 (09:23→16:57)
[2021-08-02] MEDS: FAMOTIDINE 20MG VIAL IV SCH ×2 (09:23→20:35)
[2021-08-02] MEDS: LIPASE/PROTEASE/AMYLASE 5000/17000/24000 PO SCH ×3 (09:23→20:37)
[2021-08-02] MEDS: ENOXAPARIN SODIUM 40 MG/0.4 ML SYRINGE SQ SCH (09:24)
[2021-08-02] MEDS: CEFEPIME HCL 2 GM VIAL IVP SCH (10:37)
[2021-08-02 11:03] VITALS: BP 94/59
[2021-08-02] MEDS: MEROPENEM 1 GM VIAL IVP SCH ×2 (12:02→20:35)
[2021-08-02 16:39] VITALS: BP 102/63
[2021-08-02 20:26] VITALS: BP 103/68
[2021-08-02] MEDS: LACTULOSE 20 GM/30 ML UDCUP PO SCH (21:00)
[2021-08-03 00:01] VITALS: BP 105/60
[2021-08-03] MEDS: LACTULOSE 20 GM/30 ML UDCUP PO SCH ×3 (03:00→15:00)
[2021-08-03] MEDS: MEROPENEM 1 GM VIAL IVP SCH ×3 (03:42→19:08)
[2021-08-03 04:02] VITALS: BP 120/72
[2021-08-03 04:27] LABS: CREATININE 0.5 mg/dL (0.5-1.5); POTASSIUM 4.3 mmol/L (3.5-5.1)
[2021-08-03] MEDS: BUDESONIDE 0.5 MG/2 ML INH IH SCH ×2 (06:28→18:21)
[2021-08-03] MEDS: ACETYLCYSTEINE 10% 100MG/ML 4ML VIAL IH SCH ×4 (06:28→23:19)
[2021-08-03] MEDS: IPRATROPIUM/ALBUTEROL SULFATE 3 ML SOLUTION IH SCH ×4 (06:28→23:19)
[2021-08-03 07:30] VITALS: BP 128/70
[2021-08-03] MEDS: FAMOTIDINE 20MG VIAL IV SCH ×2 (10:00→20:16)
[2021-08-03] MEDS: LIPASE/PROTEASE/AMYLASE 5000/17000/24000 PO SCH ×3 (10:00→20:16)
[2021-08-03] MEDS: ENOXAPARIN SODIUM 40 MG/0.4 ML SYRINGE SQ SCH (10:00)
[2021-08-03 11:00] VITALS: BP 116/63
[2021-08-03 16:00] VITALS: BP 101/54
[2021-08-03] MEDS ORDERED: ACET1TAB25 PO (19:51)
[2021-08-03] MEDS: ACETAMINOPHEN WITH CODEINE 1 TAB TAB PO PRN (20:16)
[2021-08-03 20:25] VITALS: BP 122/70
[2021-08-04] VITALS: BP 96/56
[2021-08-04] MEDS: MEROPENEM 1 GM VIAL IVP SCH (03:04)
[2021-08-04] MEDS: ACETAMINOPHEN WITH CODEINE 1 TAB TAB PO PRN ×3 (03:08→20:24)
[2021-08-04 03:13] VITALS: BP 105/58
[2021-08-04 04:19] LABS: BASOPHILS % (AUTO) 0.4 % (0.0-5.0); EOSINOPHILS % (AUTO) 2.1 % (0.0-8.0); HEMATOCRIT 26.7 % (42-54); LYMPHOCYTES % (AUTO) 25.3 % (21.0-51.0); MEAN CORPUSCULAR HEMOGLOBIN 27.8 pg (27.0-33.0); MEAN CORPUSCULAR HGB CONC 32.6 g/dL (32.0-36.0); MEAN CORPUSCULAR VOLUME 85.3 fL (79-99); MONOCYTES % (AUTO) 13.4 % (3.0-13.0); NEUTROPHILS % (AUTO) 58.2 % (40.0-77.0); PLATELET COUNT (AUTO) 388 K/uL (130-400); RED BLOOD CELL COUNT(AUTO) 3.13 MIL/uL (4.50-6.20); RED CELL DISTRIBUTION WIDTH 14.8 % (11.0-15.5); WHITE BLOOD COUNT (AUTO) 8.1 K/uL (4.8-10.8)
[2021-08-04 04:39] LABS: ALBUMIN 2.4 g/dL (3.5-5.0); BILIRUBIN,TOTAL 0.2 mg/dL (0.2-1.0); CREATININE 0.6 mg/dL (0.5-1.5); POTASSIUM 4.5 mmol/L (3.5-5.1); TOTAL PROTEIN, SERUM 6.4 g/dL (6.0-8.3)
[2021-08-04] MEDS: IPRATROPIUM/ALBUTEROL SULFATE 3 ML SOLUTION IH SCH ×4 (07:03→23:09)
[2021-08-04] MEDS: BUDESONIDE 0.5 MG/2 ML INH IH SCH ×2 (07:03→18:18)
[2021-08-04] MEDS: ACETYLCYSTEINE 10% 100MG/ML 4ML VIAL IH SCH ×4 (07:03→23:09)
[2021-08-04 08:09] VITALS: BP 95/59
[2021-08-04] MEDS: ENOXAPARIN SODIUM 40 MG/0.4 ML SYRINGE SQ SCH (09:08)
[2021-08-04] MEDS: FAMOTIDINE 20MG VIAL IV SCH ×2 (09:08→20:24)
[2021-08-04] MEDS: LIPASE/PROTEASE/AMYLASE 5000/17000/24000 PO SCH ×3 (09:08→20:23)
[2021-08-04] MEDS: LEVOFLOXACIN 750 MG TABLET PEG SCH (11:34)
[2021-08-04 12:00] VITALS: BP 102/64
[2021-08-04 15:54] VITALS: BP 90/60
[2021-08-04 20:00] VITALS: BP 92/56
[2021-08-04] MEDS: SULFAMETHOX-TMP DS 800/160 TAB PEG SCH (20:23)
[2021-08-05] VITALS: BP 96/61
[2021-08-05 01:48] LABS: CREATININE,URINE RANDOM 20 mg/dL (30-135); SODIUM,URINE RANDOM 48 mmol/l (40-220)
[2021-08-05] MEDS: ACETAMINOPHEN WITH CODEINE 1 TAB TAB PO PRN (02:01)
[2021-08-05 04:00] VITALS: BP 95/59
[2021-08-05] MEDS: BUDESONIDE 0.5 MG/2 ML INH IH SCH (06:45)
[2021-08-05] MEDS: IPRATROPIUM/ALBUTEROL SULFATE 3 ML SOLUTION IH SCH ×2 (06:45→11:03)
[2021-08-05] MEDS: ACETYLCYSTEINE 10% 100MG/ML 4ML VIAL IH SCH ×2 (06:45→11:03)
[2021-08-05 08:06] VITALS: BP 97/52
[2021-08-05] MEDS: FAMOTIDINE 20MG VIAL IV SCH (10:11)
[2021-08-05] MEDS: SULFAMETHOX-TMP DS 800/160 TAB PEG SCH (10:11)
[2021-08-05] MEDS: LIPASE/PROTEASE/AMYLASE 5000/17000/24000 PO SCH ×2 (10:11→14:32)
[2021-08-05] MEDS: LEVOFLOXACIN 750 MG TABLET PEG SCH (10:11)
[2021-08-05] MEDS: ENOXAPARIN SODIUM 40 MG/0.4 ML SYRINGE SQ SCH (10:13)
[2021-08-05 10:31] VITALS: BP 105/53
[2021-08-05] MEDS: ACETAMINOPHEN 325 MG TAB PO PRN (13:01)
[2021-08-05] MEDS ORDERED: LEVO750T46 PEG (14:29)
[2021-08-05] MEDS ORDERED: Sulfamethox-Tmp Ds 800/160 Tab PEG (14:29)
[2021-08-05 15:48] VITALS: BP 101/59
== END 2021-08-05 18:38 | disposition home or self-care (01) | DRG 137 ==
LOC: EDH 09:30 → EEVIPCON 09:31 → EDHIP 09:31 → 4BH 22:27
PROVIDERS: ADMIT Internal Medicine; ATTEND Internal Medicine
DX: J15.6 Pneumonia due to other Gram-negative bacteria (principal); J96.90 Respiratory failure, unspecified, unspecified whether with hypoxia or hypercapnia; D84.9 Immunodeficiency, unspecified; N17.9 Acute kidney failure, unspecified; I95.89 Other hypotension; E44.0 Moderate protein-calorie malnutrition; E87.1 Hypo-osmolality and hyponatremia; C76.0 Malignant neoplasm of head, face and neck; B96.1 Klebsiella pneumoniae [K. pneumoniae] as the cause of diseases classified elsewhere; B95.61 Methicillin susceptible Staphylococcus aureus infection as the cause of diseases classified elsewhere; J44.0 Chronic obstructive pulmonary disease with (acute) lower respiratory infection; Z93.0 Tracheostomy status; E87.8 Other disorders of electrolyte and fluid balance, not elsewhere classified; I11.0 Hypertensive heart disease with heart failure; I50.22 Chronic systolic (congestive) heart failure; F19.10 Other psychoactive substance abuse, uncomplicated; F10.20 Alcohol dependence, uncomplicated; Z16.12 Extended spectrum beta lactamase (ESBL) resistance; R53.81 Other malaise; R13.12 Dysphagia, oropharyngeal phase; Z68.1 Body mass index [BMI] 19.9 or less, adult; Z20.822 Contact with and (suspected) exposure to COVID-19; D64.9 Anemia, unspecified; Z16.24 Resistance to multiple antibiotics; Z72.0 Tobacco use; Z51.5 Encounter for palliative care; Z87.01 Personal history of pneumonia (recurrent); Z93.1 Gastrostomy status; Z80.51 Family history of malignant neoplasm of kidney; Z83.3 Family history of diabetes mellitus; Z82.49 Family history of ischemic heart disease and other diseases of the circulatory system
CPT/HCPCS: 36415; 71045; 80048; 80053; 80202; 82570; 82607; 82728; 82746; 83540; 83550; 83605; 83880; 84145; 84300; 84443; 84484; 85025; 85045; 86140; 86606; 86612; 86635; 86641; 86698; 86738; 87040; 87071; 87077; 87186; 87205; 87449; 87635; 87804; 93005; 93306; 93356; 93970; 94640; 94664; 97039; C9803; G0378; J0692; J1650; J2185; J3370; J3490; J7030; J7050; J7608